=== PATIENT | male | born 1975 | race African-American/Black ===

== ENCOUNTER 2018-10-21 20:34 | Emergency (ER) | payer SELFPAY ==
[~2018-10-21] VITALS: Ht 175.3 cm; Wt 83.9 kg
[2018-10-21 21:05] VITALS: BP 151/78
[2018-10-21] MEDS ORDERED: oxyCODONE/APAP 5/325 1 TAB TABLET PO ONE (21:45)
[2018-10-21] MEDS ORDERED: OXYC1TAB15 PO (21:50)
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
--- NOTE | 2018-10-21 22:49 | RAD ---
Right hand 3 views. HISTORY: Trauma 3 views were taken of the right hand. There is a nondisplaced fracture through the proximal third of the right first metacarpal. Fracture is mildly comminuted. No other fracture is noted. IMPRESSION: 1. Fracture right first metacarpal. Electronically signed by: Cullen Morales MD (10/21/2018 10:46 PM) [facility]
--- NOTE | 2018-10-21 22:51 | RAD ---
Left foot 2 views. HISTORY: Trauma 2 views were taken of the left foot. Patient's had previous fusion at the first and second tarsometatarsal joints with screws. The foot is in a cast. There is no acute fracture. I do not have previous studies for comparison. There is mild arthritis at the first metatarsal phalangeal joint with slight spurring. IMPRESSION: 1. Operative changes from fusions at the first and second tarsometatarsal joints. 2. Foot is in a cast which limits evaluation. 3. No other acute osseous abnormality. Electronically signed by: Cullen Morales MD (10/21/2018 10:48 PM) [facility]
== END 2018-10-21 22:06 | disposition home or self-care (01) ==
LOC: ER 20:34
DX: S62.234A Other nondisplaced fracture of base of first metacarpal bone, right hand, initial encounter for closed fracture (principal); M79.672 Pain in left foot; V43.62XA Car passenger injured in collision with other type car in traffic accident, initial encounter; Y93.89 Activity, other specified; Y92.410 Unspecified street and highway as the place of occurrence of the external cause; Y99.8 Other external cause status
CPT/HCPCS: 29125; 73130; 73620; 99284

== ENCOUNTER 2020-03-12 21:25 | Emergency (ER) | payer SELFPAY ==
[~2020-03-12] VITALS: Ht 175.3 cm; Wt 79.5 kg
[~2020-03-12 21:25] MED LIST: OXYC1TAB15 PO
[2020-03-12 21:30] VITALS: BP 110/74
--- NOTE | 2020-03-12 22:14 | RAD ---
Exam: CT head INDICATION: Swelling to right forehead TECHNIQUE: Sequential axial images through the head were obtained without the administration of IV contrast. Comparisons: None FINDINGS: No focal parenchymal lesion or hemorrhage is identified. There is no midline shift or sulcal effacement. No acute vascular territory infarction is identified. Padgett-white distinction is preserved. The ventricular system is within normal limits without compression hydrocephalus. The basal cisterns are well maintained. Near complete opacification of the right maxillary sinus. No acute fractures. IMPRESSION: No acute intracranial abnormality. Sinus disease as described above. Exposure: One or more of the following in the visualized dose reduction techniques were utilized for this examination: 1. Automated exposure control 2. Adjustment of the MA and/or KV according to patient size Use of iterative of reconstructive technique Electronically signed by: Wilma Tariq MD (03/12/2020 10:11 PM) [facility]
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
--- NOTE | 2020-03-12 22:30 | RAD ---
Exam: Right shoulder 3 views INDICATION: Left rib pain after please ossification TECHNIQUE: Frontal view of the right shoulder with internal and external rotation and transscapular Y views Comparisons: None FINDINGS: Bone mineralization is normal. No acute or healed fractures. Soft tissues are unremarkable. Joint spaces are well-maintained. IMPRESSION: No acute osseous abnormality. Electronically signed by: Wilma Tariq MD (03/12/2020 10:27 PM) [facility]
[2020-03-12] MEDS ORDERED: ACETAMINOPHEN 500 MG TABLET PO ONE (23:00)
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
[2020-03-12] MEDS ORDERED: DIPH,PERTUSS(ACELL),TET VAC/PF 0.5 ML SYRINGE. VAX IM ONE (23:30)
== END 2020-03-12 23:55 | disposition home or self-care (01) ==
LOC: ER 21:25
DX: S00.83XA Contusion of other part of head, initial encounter (principal); S40.011A Contusion of right shoulder, initial encounter; S80.812A Abrasion, left lower leg, initial encounter; S80.811A Abrasion, right lower leg, initial encounter; S40.812A Abrasion of left upper arm, initial encounter; S40.811A Abrasion of right upper arm, initial encounter; R51.9 Headache, unspecified; R07.81 Pleurodynia; F17.200 Nicotine dependence, unspecified, uncomplicated; Y08.89XA Assault by other specified means, initial encounter; Y93.89 Activity, other specified; Y92.89 Other specified places as the place of occurrence of the external cause; Y99.8 Other external cause status
CPT/HCPCS: 70450; 71101; 73030; 90471; 90715; 99284

== ENCOUNTER 2020-03-14 09:28 | Emergency (ER) | payer SELFPAY ==
[~2020-03-14] VITALS: Ht 175.3 cm; Wt 78.6 kg
[2020-03-14 09:59] VITALS: BP 150/86
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
[2020-03-14] MEDS ORDERED: NAPR-514 PO (11:37)
== END 2020-03-14 11:44 | disposition home or self-care (01) ==
LOC: ER 09:28
DX: S60.221A Contusion of right hand, initial encounter (principal); S60.211A Contusion of right wrist, initial encounter; S50.12XA Contusion of left forearm, initial encounter; Y08.89XA Assault by other specified means, initial encounter; Y93.89 Activity, other specified; Y92.89 Other specified places as the place of occurrence of the external cause; Y99.8 Other external cause status
CPT/HCPCS: 73090; 73110; 73130; 99284